=== PATIENT | female | born 1980 | race Caucasian/White ===

== ENCOUNTER → 2020-07-11 | Outpatient (CLI) | payer OTHER | LOC: M.RAD 16:00 | PROVIDERS: ATTEND Internal Medicine Endocrinology, Diabetes & Metabolism | DX: Z12.31 Encounter for screening mammogram for malignant neoplasm of breast (principal) ==

== ENCOUNTER → 2020-07-20 | Outpatient (CLI) | payer OTHER | LOC: M.ULTRA 16:00 | PROVIDERS: ATTEND Internal Medicine Endocrinology, Diabetes & Metabolism | DX: R92.8 Other abnormal and inconclusive findings on diagnostic imaging of breast (principal); R92.2 Inconclusive mammogram ==

== ENCOUNTER → 2020-07-25 | Outpatient (CLI) | payer OTHER ==
--- NOTE | 2020-07-26 16:06 | PATH ---
[address] [address] PATHOLOGY RPT PROCEDURE Name: MEGAN BENITEZ Room: [facility] HARDIK Flores#: [id number] Admission: 07/25/20 Date of : 80 Discharge: Report #: [id number] Path Case #: [id number] [facility] Accession Number: [id number] . 01 Material submitted: . breast - RIGHT BREAST BIOPSY. Modifiers: right . 01 Clinical history: . MAMMOTOME BIOPSY, RIGHT BREAST MASS AT 1:00, 4CMFN 0.7 x 1.24 x 0.71 . 02 Diagnosis: Right breast mass, 1:00, 4 cm from nipple, Mammotome biopsy: - Benign breast tissue with dense fibrosis and focal apocrine change, negative for atypia. See comment. (GOOD:lavern; 07/26/2020) MBR 07/26/2020 1214 Local . 02 Comment: Reviewed with Dr. Levi Pink who agrees with the diagnosis. (GOOD:statistical technician; 07/26/2020) . 02 Electronically signed: . Yahir Curry MD, Pathologist NPI- [id number] . 01 Gross description: . The specimen is received in formalin, labeled "Megan Benitez, right breast biopsy 1:00 4cfn" and consists of 4 needle cores of yellow to pink-molina tissue measuring between 1.5 cm and 2.6 cm in length and 0.5 cm in diameter which are entirely submitted in A1-A3. The specimen was collected at 9:26 AM on 07/25/2020 and placed in formalin at 9:32 AM. The cold ischemic time is 6 minutes and the total formalin fixation time is greater than 6 hours and less than 72 hours. (SDY; 07/25/2020) SYU/SYU 07/26/2020 1212 Local . 02 Pathologist provided ICD-10: N60.31 . 02 CPT . 858745 Specimen Comment: A courtesy copy of this report has been sent to [phone] Specimen Comment: [phone], Specimen Comment: Report sent to ,DR NGUYEN / DR MERCHANT Performed at: 01 [place] [address] PATHOLOGY RPT PROCEDURE Name: MEGAN BENITEZ Room: [facility]#: [id number] Admission: 07/25/20 Date of : 80 Discharge: Report #: [id number] Path Case #: [id number] [address] [facility] [address], [place] Chen [id number] MD Flako Pro MD Phone: [phone] Performed at: [address] [facility] [address] [place] Dejesus [id number] MD Yahir Curry MD Phone: [phone]
== END | disposition home or self-care (01) ==
LOC: M.ULTRA 08:05
PROVIDERS: ATTEND Internal Medicine Endocrinology, Diabetes & Metabolism
DX: N60.31 Fibrosclerosis of right breast (principal); R92.1 Mammographic calcification found on diagnostic imaging of breast

== ENCOUNTER → 2021-02-27 | Outpatient (CLI) | payer OTHER | LOC: M.RAD 15:40 | PROVIDERS: ATTEND Internal Medicine Endocrinology, Diabetes & Metabolism | DX: N63.10 Unspecified lump in the right breast, unspecified quadrant (principal); N60.11 Diffuse cystic mastopathy of right breast ==